=== PATIENT | female | born 1945 | race Caucasian/White ===

== ENCOUNTER → 2019-05-26 09:53 | Outpatient (CLI) | payer MEDICARE ==
--- NOTE | 2019-05-29 09:07 | EC ---
PATIENT:JAZMÍN WELLS DATE OF SERVICE: 05/26/19 SEX: F MEDICAL RECORD: [id number] DATE OF : [birth year] LOCATION:[facility] AGE OF PATIENT: 73 ADMISSION DATE: 05/26/19 REFERRING PHYSICIAN: INTERPRETING PHYSICIAN: YURIDIA MISHRA MD ECHOCARDIOGRAM REPORT ECHO CHARGES 4 ECHO COMPLETE Date: 05/26/19 CLINICAL DIAGNOSIS: HEART MURMUR ECHOCARDIOGRAPHIC MEASUREMENTS (adult normal given) AC root (d.<3.7cm) 3.5 cm LV Septum d (<1.2 cm> 1.3 cm Valve Excursion 1.9 cm LV Septum (systole) 1.8 cm Left Atria (s.<4.0cm> 3.6 cm LVPW d(<1.2cm) 1.5 cm RV (d.<2.3cm) 3.4 cm LVPW (sytole) 1.8 cm LV diastole(<5.6CM) 4.9 cm MV E-F(>70mm/sec) cm LV systole 3.7 cm LVOT Diameter 1.8 cm MV exc.(>10mm) 1.6 cm Est.ejection fraction (50-75%) % DOPPLER: LVIT cm/sec A 97.0 cm/sec E 76.0 cm/sec LA cm/sec RVSP 28 mmHg LVOT 111 cm/sec AOP1/2T m/s Asc. Ao 124 cm/sec RVOT 71 cm/sec RA cm/sec PA 108 cm/sec AV Gradient Peak 6.19 mmHg AV Mean 3.80 mmHg AV Area 2.0 cm MV Gradient Peak 4.91 mmHg MV Mean 2.82 mmHg MV Area cm COMMENTS: Pole Inspector: 2 GENNY MARQUEZ Operations And Maintenance Technician: 3 Dr. Deluna TAPE# PACS Pericardial Effusion N DATE OF SERVICE: Adequate 2D, color flow, spectral Doppler, and M-mode. LVH is present. LV internal dimension is normal. Wall motion is normal. EF is greater than or equal to 55%. Aortic valve is tricuspid. No evidence of stenosis by Doppler interrogation. Left atrium is normal at 3.6 cm. Mitral valve shows no prolapse. Trace MR. Right-sided chambers are grossly normal. Mild TR. ECHOCARDIOGRAM REPORT [id number] JAZMÍN WELLS TRANSINT:[id number] Voice Confirmation ID: [id number] DOCUMENT ID: [id number] YURIDIA MISHRA MD at 0907 CC: [id number] DICTATION DATE: 05/28/19 1317 PHOTOENGRAVING PROOFER: 05/28/19 1409 DEP CLI 05/26/19 [place] [id number] [place] [id number]
--- NOTE | 2019-06-02 11:41 | ST ---
PATIENT:JAZMÍN WELLS MEDICAL RECORD: [id number] SEX: F LOCATION:[facility] ORDER #: ADMISSION DATE: 05/26/19 AGE OF PATIENT: 73 REFERRING PHYSICIAN: INTERPRETING PHYSICIAN: MIKAELA STEIN MD DATE OF SERVICE: 05/26/2019 Nuclear Stress Test INDICATIONS: Angina, shortness of breath, abnormal ECG, hypertension, hyperlipidemia. She was exercised on standard Lexiscan protocol with 33 mCi sestamibi injected at peak stress and 11 mCi used previously for rest images. FINDINGS: Gated SPECT reveals preserved ejection fraction at 71% with good wall motion and thickening and brightening throughout all segments. SPECT Imaging: Cardiolite was used as myocardial fusion agent. There is homogeneous uptake throughout all segments at rest and stress with no evidence of inducible ischemia or previous infarction. OVERALL IMPRESSION: 1. This is a normal nuclear stress test with no evidence of inducible ischemia or previous infarction. 2. Gated SPECT reveals a preserved ejection fraction at 71%. In this patient with ongoing symptomatology, the current scan does not suggest the presence of hemodynamically significant coronary artery disease. Evaluate noncardiac etiology of chest pain. TRANSINT:[id number] Voice Confirmation ID: [id number] DOCUMENT ID: [id number] MIKAELA STEIN MD at 1141 CC: AUGUSTINE OBRIEN [id number] DICTATION DATE: 05/27/19 1211 CABLE SWAGER: 05/28/19 0042 DEP CLI 05/26/19 [facility] [address] [place] [address]
== END | disposition home or self-care (01) ==
LOC: D.HCCARDIO 09:53 → D.HCCECHO 14:30
PROVIDERS: ATTEND Internal Medicine Interventional Cardiology
DX: I20.9 Angina pectoris, unspecified (principal)